=== PATIENT | female | born 1955 | race Caucasian/White ===

== ENCOUNTER → 2020-11-09 | Outpatient (CLI) | payer OTHER | LOC: US 11:00 → ECHO 12:00 → NM 13:00 | DX: R55 Syncope and collapse (principal); I20.9 Angina pectoris, unspecified; I65.23 Occlusion and stenosis of bilateral carotid arteries; I08.3 Combined rheumatic disorders of mitral, aortic and tricuspid valves | CPT/HCPCS: ECHO; 78452; 93017; 93306; 93880; A9502; J2785 ==

== ENCOUNTER → 2020-12-08 | Outpatient (CLI) | payer OTHER | LOC: MAMO 07:50 | DX: Z12.31 Encounter for screening mammogram for malignant neoplasm of breast (principal) | CPT/HCPCS: 77063; 77067 ==

== ENCOUNTER → 2021-08-05 | Outpatient (CLI) | payer OTHER | LOC: KOH-I 11:16 | DX: M54.6 Pain in thoracic spine (principal); M54.50 Low back pain, unspecified; M47.816 Spondylosis without myelopathy or radiculopathy, lumbar region | CPT/HCPCS: 72070; 72110 ==